=== PATIENT | male | born 1930 | race Caucasian/White ===

== ENCOUNTER 2020-10-11 11:24 | Outpatient (CLI) | payer OTHER ==
[~2020-10-11 11:24] MED LIST: ANTIVERT25 M1 PO; BACLOFEN10 MG PO; BENTYL10 MG/ML; CARAFATE SU1 G/10 ML PO; CEFADROXIL500 MG PO; CIPRO100 MG; CIPRO500 MG PO; DICY20TA PO; DOLOGEN CAPLET1 EACH PO; DOLOGESIC CAPLE1 TAB; FAMOTIDINE20 MG; FIRST-OMEPR2 MG/1 ML; FLAGYL; INTESTINEX1 CAP; LEVSIN/SL0.125 MG SL; LEVSIN0.125 MG PO; PEPCID20 MG; PHENERGAN25 MG; PRILOSEC20 MG PO; PRILOSEC40 MG PO; PROTONIX40 MG; PROTONIX40 MG PO; SEPTRA DS TABLE1 TAB PO; TRAMADOL HCL-AP1 TAB; TRAMADOL HCL-AP1 TAB PO; VELTIN GEL30 GM; ZANTAC15 MG/ML; ZANTAC150 M3; ZANTAC300 MG PO; ZITHROMAX TRI-500 MG PO; ZOFRAN4 MG PO
== END 2020-10-11 11:31 ==
LOC: RAD 11:24
DX: M50.323 Other cervical disc degeneration at C6-C7 level (principal); M51.37 Other intervertebral disc degeneration, lumbosacral region; M51.34 Other intervertebral disc degeneration, thoracic region; M99.01 Segmental and somatic dysfunction of cervical region; M99.02 Segmental and somatic dysfunction of thoracic region; M99.03 Segmental and somatic dysfunction of lumbar region